=== PATIENT | male | born 1995 | race Caucasian/White ===

== ENCOUNTER → 2024-07-08 | Outpatient (CLI) | payer OTHER | LOC: M PLAIMG 12:17 | PROVIDERS: ATTEND Physician Assistant | DX: S62.014A Nondisplaced fracture of distal pole of navicular [scaphoid] bone of right wrist, initial encounter for closed fracture (principal); Y92.9 Unspecified place or not applicable; Y93.9 Activity, unspecified; Y99.9 Unspecified external cause status; X58.XXXA Exposure to other specified factors, initial encounter ==

== ENCOUNTER → 2024-08-16 | Outpatient (CLI) | payer OTHER ==
[~2024-08-16] MED LIST: ISOVUE-300 61% 100ML VIAL As Ordered ONE; LIDOCAINE 1% MDV 20ML VIAL As Ordered ONE; PROHANCE 279.3MG/ML 15ML VIAL As Ordered ONE
== END ==
LOC: M RAD 06:40
PROVIDERS: ATTEND Physician Assistant
DX: S62.001K Unspecified fracture of navicular [scaphoid] bone of right wrist, subsequent encounter for fracture with nonunion (principal)
CPT/HCPCS: 25246; 73223; 77002; A9576; Q9967

== ENCOUNTER → 2024-09-08 | Day surgery (SDC) | payer OTHER ==
[~2024-09-08] VITALS: Ht 188 cm; Wt 96.7 kg
[~2024-09-08] MED LIST changes: +ACET-683 PO; +ACETAMINOPHEN 1000MG/100ML IV BAG As Ordered ONE; +D 50CAP2 PO; +HYDROmorphone HCL 2MG/ML 1ML VIAL As Ordered ONE; +IBUP200T46 PO; -ISOVUE-300 61% 100ML VIAL As Ordered ONE; +KETOROLAC 60MG 2ML VIAL As Ordered ONE; -LIDOCAINE 1% MDV 20ML VIAL As Ordered ONE; +LIDOCAINE 2% 100MG/5ML SDV (FOR ANES.) As Ordered ONE; +LR 1,000 ML IV SCH; +MIDAZOLAM INJ 2MG/2ML VIAL As Ordered ONE; +ONDANSETRON 4MG 2ML VIAL As Ordered ONE; -PROHANCE 279.3MG/ML 15ML VIAL As Ordered ONE; +propofoL 200 MG/20 ML VIAL As Ordered ONE
[2024-09-08 07:44] VITALS: BP 127/72; TEMP 97.3; O2SAT 99
== END | disposition home or self-care (01) ==
LOC: M SDC 06:36
PROVIDERS: ATTEND Orthopaedic Surgery Hand Surgery
DX: Z53.09 Procedure and treatment not carried out because of other contraindication (principal)

== ENCOUNTER 2024-09-15 11:17 | Day surgery (SDC) | payer OTHER ==
[~2024-09-15] VITALS: Ht 188 cm; Wt 95.4 kg
[~2024-09-15 11:17] MED LIST changes: -ACETAMINOPHEN 1000MG/100ML IV BAG As Ordered ONE; -HYDROmorphone HCL 2MG/ML 1ML VIAL As Ordered ONE; -KETOROLAC 60MG 2ML VIAL As Ordered ONE; -LIDOCAINE 2% 100MG/5ML SDV (FOR ANES.) As Ordered ONE; -LR 1,000 ML IV SCH; -MIDAZOLAM INJ 2MG/2ML VIAL As Ordered ONE; -ONDANSETRON 4MG 2ML VIAL As Ordered ONE; -propofoL 200 MG/20 ML VIAL As Ordered ONE
[2024-09-15] MEDS ORDERED: CEPH500C PO (11:55)
[2024-09-15] MEDS: EPINEPHrine INJ 1 MG/ML 1ML AMP PN ONE (12:25)
[2024-09-15] MEDS: dexAMETHasone 10MG/1ML VIAL PRES.FREE PN ONE (12:25)
[2024-09-15] MEDS ORDERED: propofoL 200 MG/20 ML VIAL As Ordered ONE (12:31)
[2024-09-15] MEDS ORDERED: LIDOCAINE 2% 100MG/5ML SDV (FOR ANES.) As Ordered ONE (12:31)
[2024-09-15] MEDS ORDERED: MIDAZOLAM INJ 2MG/2ML VIAL As Ordered ONE (12:32)
[2024-09-15] MEDS ORDERED: fentaNYL 100 MCG/2 ML INJECTION As Ordered ONE (12:32)
[2024-09-15] MEDS: fentaNYL 100 MCG/2 ML INJECTION IV PRN (13:10)
[2024-09-15] MEDS: MIDAZOLAM INJ 2MG/2ML VIAL IV PRN (13:10)
[2024-09-15] MEDS ORDERED: ONDANSETRON 4MG 2ML VIAL As Ordered ONE (13:39)
[2024-09-15] MEDS: ceFAZolin SODIUM 2 GM VIAL As Ordered ONE (13:42)
[2024-09-15] MEDS ORDERED: ACETAMINOPHEN 1000MG/100ML IV BAG As Ordered ONE (13:56)
[2024-09-15] MEDS ORDERED: KETOROLAC 30 MG/ML 1ML VIAL As Ordered ONE (14:59)
[2024-09-15] MEDS: BACITRACIN OINTMENT 30GM TUBE As Ordered ONE (15:34)
[2024-09-15] MEDS ORDERED: fentaNYL 100 MCG/2 ML INJECTION IV PRN (15:35)
[2024-09-15] MEDS ORDERED: PERCOCET PO (16:04)
[2024-09-15] MEDS: oxyCODONE 5MG TAB PO PRN (16:10)
[2024-09-15] MEDS: MORPHINE 2 MG/ML 1ML VIAL IV PRN (16:11)
[2024-09-15] MEDS: ONDANSETRON 4MG 2ML VIAL IV PRN (16:11)
[2024-09-15 17:43] VITALS: BP 133/84; TEMP 97.8; O2SAT 98
== END 2024-09-15 17:45 | disposition home or self-care (01) ==
LOC: M SDC 11:17
PROVIDERS: ATTEND Orthopaedic Surgery Hand Surgery
DX: S62.011A Displaced fracture of distal pole of navicular [scaphoid] bone of right wrist, initial encounter for closed fracture (principal); X58.XXXA Exposure to other specified factors, initial encounter; Y93.23 Activity, snow (alpine) (downhill) skiing, snowboarding, sledding, tobogganing and snow tubing; Y92.9 Unspecified place or not applicable
CPT/HCPCS: 25628; 73110; 76000; C1713; C1762; J0131; J0171; J0665; J0690; J1100; J1885; J2250; J2405; J3010

== ENCOUNTER → 2024-09-24 | Outpatient (CLI) | payer OTHER ==
[~2024-09-24] MED LIST changes: +CEPH500C PO; +PERCOCET PO
== END ==
LOC: M SOG 08:02
PROVIDERS: ATTEND Physician Assistant
DX: S62.001K Unspecified fracture of navicular [scaphoid] bone of right wrist, subsequent encounter for fracture with nonunion (principal)

== ENCOUNTER → 2025-01-21 | Outpatient (CLI) | payer OTHER | LOC: M SOG 06:54 | PROVIDERS: ATTEND Physician Assistant | DX: S62.001A Unspecified fracture of navicular [scaphoid] bone of right wrist, initial encounter for closed fracture (principal); Y93.9 Activity, unspecified; Y92.9 Unspecified place or not applicable ==

== ENCOUNTER → 2025-02-09 | Outpatient (CLI) | payer OTHER | LOC: M PLAIMG 07:01 | PROVIDERS: ATTEND Physician Assistant | DX: S62.001D Unspecified fracture of navicular [scaphoid] bone of right wrist, subsequent encounter for fracture with routine healing (principal) ==

== ENCOUNTER → 2025-04-01 | Outpatient (CLI) | payer OTHER | LOC: M SOG 07:26 | PROVIDERS: ATTEND Physician Assistant | DX: S62.001D Unspecified fracture of navicular [scaphoid] bone of right wrist, subsequent encounter for fracture with routine healing (principal); X58.XXXD Exposure to other specified factors, subsequent encounter ==